=== PATIENT | male | born 1965 | race Caucasian/White ===

== ENCOUNTER → 2023-03-20 | Outpatient (CLI) | payer OTHER ==
--- NOTE | 2023-03-20 15:09 | XR ---
EXAMINATION TYPE: XR hand complete LT DATE OF EXAM: 03/20/2023 COMPARISON: None HISTORY: Swelling left hand distal and third metacarpal x2 weeks TECHNIQUE: 3 view left hip FINDINGS: Soft tissue swelling is over the distal metacarpal region. No acute fracture or dislocation is evident. Joint spaces are preserved. Follow up exams can be performed as clinically indicated. IMPRESSION: 1. No acute osseous abnormality. 2. Soft tissue swelling dorsum hand
== END | disposition home or self-care (01) ==
LOC: RADXRMAIN 13:22
PROVIDERS: ATTEND Family Medicine
DX: M79.89 Other specified soft tissue disorders (principal); R60.0 Localized edema

== ENCOUNTER → 2023-03-20 | Outpatient (CLI) | payer OTHER ==
--- NOTE | 2023-03-20 15:09 | US ---
EXAMINATION TYPE: US venous doppler duplex UE LT DATE OF EXAM: 03/20/2023 COMPARISON: NONE CLINICAL INDICATION: Male, 57 years old with history of R60.0 LOCALIZED EDEMA; lt wrist edema SIDE PERFORMED: Left Left Arm: Negative for DVT IMPRESSION: 1. Left upper extremity negative for deep venous thrombosis.
== END | disposition home or self-care (01) ==
LOC: MERGE 13:29 → RADUSWWP 13:29
PROVIDERS: ATTEND Family Medicine
DX: R60.0 Localized edema (principal)

== ENCOUNTER 2023-04-05 15:34 | Emergency (ER) | payer OTHER ==
[2023-04-05 15:50] VITALS: TEMP 98.1
--- NOTE | 2023-04-05 16:10 | ED ---
Chest Pain HPI - General Chief Complaint: Chest Pain Stated Complaint: Abn EKG, Chest Pain/sent by pcp Time Seen by Provider: 04/05/23 15:48 Source: patient Mode of arrival: ambulatory Limitations: no limitations - History of Present Illness Initial Comments: is 57-year-old man here to have evaluation for chest pain. Patient states that he was having some pains last night and this morning when he got up. He states that he went to work but then he had a brief nose bleed so he felt he should be evaluated. He went to his primary physician's office where they checked an EKG and sent him here to have further evaluation. The patient states she is just having some mild tightness to the left of the sternum. He states that he felt like his heart was pounding forcefully this morning when he woke up. He denies associated dyspnea, diaphoresis, nausea or vomiting. The patient is former smoker but quit 10 years ago. No family history. MD Complaint: chest pain Onset/Timin -: days(s) Onset: during rest Pain Location: left chest Pain Radiation: none Severity: mild Quality: tightness Consistency: constant Improves With: nothing Worsens With: nothing Treatments Prior to Arrival: none - Related Data On Oral Contraceptives: No Home Medications Medication Instructions Recorded Confirmed EPINEPHrine (Auto Inject) [Epipen] 0.3 mg IM ONCE PRN 04/05/23 04/05/23 Ibuprofen [Motrin] 600 mg PO TID-W/MEALS 04/05/23 04/05/23 Rosuvastatin [Crestor] 20 mg PO DAILY 04/05/23 04/05/23 predniSONE See Taper PO DIRECTED 04/05/23 04/05/23 Allergies Allergy/AdvReac Type Severity Reaction Status Date / Time bee venom protein (honey bee) Allergy Anaphylaxis Verified 04/05/23 16:59 Review of Systems ROS Statement: Those systems with pertinent positive or pertinent negative responses have been documented in the HPI. ROS Other: All systems not noted in ROS Statement are negative. Constitutional: Denies: fever, chills Respiratory: Denies: cough, dyspnea Cardiovascular: Reports: chest pain, palpitations. Denies: edema, syncope Gastrointestinal: Denies: abdominal pain, nausea, vomiting, diarrhea Genitourinary: Denies: dysuria, hematuria Musculoskeletal: Denies: back pain Skin: Denies: rash Neurological: Denies: headache, weakness EKG Findings - EKG Results: EKG: interpreted by ERMD, sinus rhythm (Rate 73 bpm) - Blocks, [place], Hypertrophy, ST Abn: AV and intraventricular conduction: right bundle branch block (fixed/intermittent, complete/incomplete) QRS axis and voltage: left axis deviation (-30 to -90) Chamber hypertrophy or enlargement: only voltage criteria for left ventricular hypertrophy Past Medical History Past Medical History: Rheumatoid Arthritis (RA) History of Any Multi-Drug Resistant Organisms: None Reported Past Surgical History: No Surgical Hx Reported Smoking Status: Former smoker Past Alcohol Use History: None Reported Past Drug Use History: None Reported General Exam Limitations: no limitations General appearance: alert, in no apparent distress Head exam: Present: atraumatic, normocephalic Eye exam: Present: normal appearance. Absent: scleral icterus, conjunctival injection Neck exam: Present: normal inspection Respiratory exam: Present: normal lung sounds bilaterally. Absent: respiratory distress, wheezes, rales, rhonchi, stridor Cardiovascular Exam: Present: regular rate, normal rhythm, normal heart sounds. Absent: systolic murmur, diastolic murmur, rubs, gallop GI/Abdominal exam: Present: soft. Absent: distended, tenderness, guarding, rebound, rigid, mass Extremities exam: Present: normal inspection, normal capillary refill. Absent: pedal edema, calf tenderness Back exam: Present: normal inspection. Absent: CVA tenderness (R), CVA tenderness (L) Neurological exam: Present: alert Skin exam: Present: warm, dry, intact, normal color. Absent: rash Course Vital Signs 04/05/23 04/05/23 04/05/23 15:40 20:01 20:30 Temperature 98.1 F Pulse Rate 80 75 68 Respiratory 16 16 16 Rate Blood Pressure 167/87 128/91 131/87 O2 Sat by Pulse 95 97 97 Oximetry 04/05/23 04/05/23 21:30 22:00 Temperature Pulse Rate 74 77 Respiratory 13 18 Rate Blood Pressure 123/84 123/84 O2 Sat by Pulse 97 95 Oximetry Chest Pain MDM - MDM The patient had chest x-ray which I interpreted as negative for acute infiltrate, pneumothorax, congestive heart failure Was pt. sent in by a medical professional or institution (, PA, FINANCE MANAGER, urgent care, hospital, or prison...) When possible be specific @ -[No] Did you speak to anyone other than the patient for history (EMS, parent, family, police, friend...)? What history was obtained from this source @ -[No] Did you review nursing and triage notes (agree or disagree)? Why? @ -[I reviewed and agree with nursing and triage notes] Were old charts reviewed (outside hosp., previous admission, EMS record, old EKG, old radiological studies, urgent care reports/EKG's, prison records)? Report findings @ -[No old charts were reviewed] Differential Diagnosis (chest pain, altered mental status, abdominal pain women, abdominal pain men, vaginal bleeding, weakness, fever, dyspnea, syncope, headache, dizziness, GI bleed, back pain, seizure, CVA, palpatations, mental health, musculoskeletal)? @ -[Differential Chest Pain: Stable Angina, Unstable Angina, STEMI, NSTEMI Aortic Dissection, Pneumothorax, Musculoskeletal, Esophageal Spasm GERD, Cholecystitis, Pancreatitis, Zoster, this is not meant to be an all-inclusive list. EKG interpreted by me (3pts min.). @ -[I interpreted As above] X-rays interpreted by me (1pt min.). @ -I interpreted as above CT interpreted by me (1pt min.). @ -[None done] U/S interpreted by me (1pt. min.). @ -[None done] What testing was considered but not performed or refused? (CT, X-rays, U/S, labs)? Why? @ -[None] What meds were considered but not given or refused? Why? @ -[None] Did you discuss the management of the patient with other professionals (professionals i.e. , PA, FINANCE MANAGER, lab, RT, psych nurse, manager social services, clinical trial specialist, teacher, school services officer, immigration case worker)? Give summary @ -[No] Was smoking cessation discussed for >3mins.? @ -[No] Was critical care preformed (if so, how long)? @ -[No] Were there social determinants of health that impacted care today? How? (Homelessness, low income, unemployed, alcoholism, drug addiction, transportation, low edu. Level, literacy, decrease access to med. care, correction, rehab)? @ -[No] Was there de-escalation of care discussed even if they declined (Discuss DNR or withdrawal of care, Hospice)? DNR status @ -[No] What co-morbidities impacted this encounter? (DM, HTN, Smoking, COPD, CAD, Cancer, CVA, ARF, Chemo, Hep., AIDS, mental health diagnosis, sleep apnea, morbid obesity)? @ -[None] Was patient admitted / discharged? Hospital course, mention meds given and route, prescriptions, significant lab abnormalities, going to OR and other pertinent info. @ -[The patient is a 57-year-old man here to have evaluation for chest pain. The patient's initial workup unremarkable, I did recommend admission but the patient at this point is feeling better and would like to go home. He did agree to stay to have second troponin which was also negative. He understands recommendation to have follow-up with cardiology in the near term. We discussed return parameters Undiagnosed new problem with uncertain prognosis? @ -[No] Drug Therapy requiring intensive monitoring for toxicity (Heparin, Nitro, Insulin, Cardizem)? @ -[No] Were any procedures done? @ -[No] Diagnosis/symptom? @ -[Acute chest pain Acute, or Chronic, or Acute on Chronic? @ -[default] Uncomplicated (without systemic symptoms) or Complicated (systemic symptoms)? @ -[Uncomplicated Side effects of treatment? @ -[No] Exacerbation, Progression, or Severe Exacerbation? @ -[No] Poses a threat to life or bodily function? How? (Chest pain, [place], DC, pneumonia, PE, COPD, DKA, ARF, appy, cholecystitis, CVA, Diverticulitis, Homicidal, Suicidal, threat to staff... and all critical care pts) @ -[Yes, there is possibility of underlying cardiac etiology which may progress to DC slashed sudden- Disposition Clinical Impression: Chest pain Disposition: HOME SELF-CARE Condition: Good Instructions (If sedation given, give patient instructions): Chest Pain (ED) Is patient prescribed a controlled substance at d/c from ED?: No Referrals: Eliot Orta MD [Primary Care Provider] - 1-2 days Bashir Luong MD [STAFF PHYSICIAN] - 1-2 days
[2023-04-05 17:33] LABS: Basophils % (A) 0 %; Eosinophils # (A) 0.1 k/uL (0-0.7); Eosinophils % (A) 1 %; HCT 43.2 % (39.0-53.0); HGB 14.5 gm/dL (13.0-17.5); Lymphocytes % (A) 22 %; MCHC 33.5 g/dL (31.0-37.0); MCV 92.5 fL (80.0-100.0); Mean Platelet Volume 8.6; Monocytes # (A) 0.9 k/uL (0-1.0); Monocytes % (A) 6 %; Neutrophils # (A) 9.3 k/uL (1.3-7.7); Neutrophils % (A) 69 %; Platelet Count 283 k/uL (150-450); RBC 4.67 m/uL (4.30-5.90); RDW 12.6 % (11.5-15.5); WBC 13.5 k/uL (3.8-10.6)
[2023-04-05 17:47] LABS: ALT 27 U/L (4-49); AST 18 U/L (17-59); African American GFR (CKD) >90 (>60 ml/min/1.73 sqM); Alkaline Phosphatase 100 U/L (38-126); Anion Gap 10 mmol/L; Blood Urea Nitrogen 20 mg/dL (9-20); Calcium 9.4 mg/dL (8.4-10.2); Carbon Dioxide 24 mmol/L (22-30); Chloride 104 mmol/L (98-107); Glucose 107 mg/dL (74-99); Magnesium 2.5 mg/dL (1.6-2.3); Non-African American GFR(CKD) >90 (>60 ml/min/1.73 sqM); Potassium 4.3 mmol/L (3.5-5.1); Sodium 138 mmol/L (137-145); Total Bilirubin 0.4 mg/dL (0.2-1.3); Total Protein 7.3 g/dL (6.3-8.2)
[2023-04-05 18:34] LABS: Partial Thromboplastin Time 24.2 sec (22.0-30.0)
--- NOTE | 2023-04-05 18:35 | XR ---
EXAMINATION TYPE: XR chest 2V DATE OF EXAM: 04/05/2023 COMPARISON: None INDICATION: Chest pain TECHNIQUE: Frontal and lateral views of the chest are obtained. FINDINGS: The heart size is normal. The pulmonary vasculature is normal. Some mild infiltrate is within the lingula. There is partial silhouetting the left heart border at th e apex and the left diaphragm.. IMPRESSION: 1. Mild infiltrate within the lingula. Correlate for atelectasis or pneumonia. Follow-up can be perfo rmed.
[2023-04-05 21:46] VITALS: BP 123/84
[2023-04-05 22:35] VITALS: PULSE 77; RESP 18
== END 2023-04-05 22:18 | disposition home or self-care (01) ==
LOC: EC 15:34
DX: I45.10 Unspecified right bundle-branch block (principal); Z87.891 Personal history of nicotine dependence; Z91.030 Bee allergy status
CPT/HCPCS: 36415; 71046; 80053; 83735; 84484; 85025; 85610; 85730; 93005; 99285

== ENCOUNTER → 2023-05-09 | Outpatient (CLI) | payer OTHER ==
--- NOTE | 2023-05-09 11:42 | CA ---
Transthoracic Echo Report Name: Christopher Gonzales Age: 57 Gender: M : 1965 Exam Date: 05/09/2023 10:47 Exam Location: [place] [facility] Ht (in): 71 Wt (lb): 210 Ordering Physician: Eliot Orta MD Attending/Referring Phys: Kasey Salas [facility] Clean Room Operator Pilar Rizo RDCS Procedure CPT: Indications: R00.2 palpitations Cardiac Hx: Technical Quality: Fair Contrast 1: Total Dose (mL): Contrast 2: Total Dose (mL): MEASUREMENTS (Male / Female) Normal Values 2D ECHO LV Diastolic Diameter PLAX 3.5 cm 4.2 - 5.9 / 3.9 - 5.3 cm LV Systolic Diameter PLAX 2.7 cm IVS Diastolic Thickness 1.5 cm 0.6 - 1.0 / 0.6 - 0.9 cm LVPW Diastolic Thickness 1.4 cm 0.6 - 1.0 / 0.6 - 0.9 cm LV Relative Wall Thickness 0.8 RV Internal Dim ED PLAX 3.3 cm LA Volume 33.2 cm??? 18 - 58 / 22 - 52 cm??? LA Volume Index 15.0 cm???/m??? 16 - 28 cm???/m??? M-MODE Aortic Root Diameter MM 3.1 cm LA Systolic Diameter MM 3.8 cm LA Ao Ratio MM 1.3 AV Cusp Separation MM 2.2 cm DOPPLER AV Peak Velocity 142.5 cm/s AV Peak Gradient 8.1 mmHg AV Mean Velocity 102.4 cm/s AV Mean Gradient 4.8 mmHg AV Velocity Time Integral 28.1 cm LVOT Peak Velocity 104.3 cm/s LVOT Peak Gradient 4.3 mmHg LVOT Velocity Time Integral 20.1 cm MV Area PHT 3.5 cm??? Mitral E Point Velocity 64.2 cm/s Mitral A Point Velocity 95.4 cm/s Mitral E to A Ratio 0.7 MV Deceleration Time 216.6 ms MV E' Velocity 8.4 cm/s Mitral E to MV E' Ratio 7.6 TR Peak Velocity 208.7 cm/s TR Peak Gradient 17.4 mmHg Right Ventricular Systolic Press 22.4 mmHg FINDINGS Left Ventricle Moderately increased left ventricular wall thickness. Left ventricular cavity size normal. Normal left ventricular systolic function with no obvious regional wall motion abnormalities. Left ventricular ejection fraction is estimated at 55-60 %. Right Ventricle Normal right ventricular size and function. Right ventricular systolic pressure within normal limits. Right Atrium Normal right atrial size. Left Atrium Normal left atrial size. Interatrial septal aneurysm. Mitral Valve Structurally normal mitral valve. No mitral stenosis, regurgitation or prolapse. Aortic Valve Trileaflet aortic valve. No aortic valve stenosis or regurgitation. Tricuspid Valve Structurally normal tricuspid valve. Mild tricuspid regurgitation. Pulmonic Valve Structurally normal pulmonic valve. Pericardium No pericardial effusion. Aorta Normal size aortic root and proximal ascending aorta. CONCLUSIONS Normal LV size and systolic function. Mild mitral and tricuspid regurgitation. No significant pulmonary hypertension no pericardial effusion Previewed by: Dr. Hammad Kumar MD (Electronically Signed) Final Date: 09 May 2023 11:41
--- NOTE | 2023-05-09 11:45 | CA ---
Stress Echo Report Christopher Gonzales Age: 57 Gender: M : 1965 Exam Date: 05/09/2023 10:28 Exam Location: [place] Stress Ht (in): 71 Wt (lb): 210 Ordering Physician: Eliot Orta MD Referring Physician: Kasey Salas Lap Machine Operator: Tex Simeon Technologist Procedure CPT: Indication: R00.2 palpitations ICD-9 Codes: Rhythm: Patient History: Cardiac Medications: Medications in past 24 hours: Contrast: N/A Stress Results Protocol: Estiven Total dose(mL): Exercise Duration (min:sec): 10:[address] Depression (mm): Angina Score: Berg Score: METS: 11.7 Resting HR: 97 Resting BP: 110 / 74 Peak HR: 163 Peak BP: 170 / 72 Max Predicted HR: 163 100 % Max Predicted HR Target HR: 139 Double Product: 10327 Stress Summary: BP Response: Reason for Termination: Reached target heart rate or work-load Cardiac Symptoms: NO SYMPTOMS ECG Analysis Resting ECG: Stress ECG: Arrhythmia: Echo Analysis Resting Echo: Peak Echo Analysis: MEASUREMENTS (Male/Female) Normal Values CONCLUSIONS Baseline EKG revealed a normal sinus rhythm with a right bundle branch block pattern and repolarization abnormality. Patient walked on a standard Estiven protocol for 10 minutes 36 seconds and achieved a maximal heart rate of 160 bpm. He did not have any anginal symptoms there was no arrhythmia. EKG remained inconclusive. This is a inconclusive stress test by EKG criteria because of resting EKG changes. Excellent excise capacity was noted no angina no arrhythmia was noted. Baseline echo images revealed normal wall motion wall thickening of all segments . At peak exercise there was good augmentation of the front wall motion wall thickening of all segments suggesting that there is no evidence of stress-induced ischemia on this study. Final impression #1 by EKG criteria is inconclusive stress test with excellent exercise capacity. There were resting EKG changes to begin with. Patient did not have any angina there was no arrhythmia. #2 normal stress echocardiogram without evidence of ischemia Dr. Hammad Kumar MD (Electronically Signed) Final Date: 09 May 2023 11:45
== END | disposition home or self-care (01) ==
LOC: RADECHMAIN 09:38
PROVIDERS: ATTEND Family Medicine
DX: I08.1 Rheumatic disorders of both mitral and tricuspid valves (principal); R00.2 Palpitations; I45.10 Unspecified right bundle-branch block
CPT/HCPCS: 93306; 93351

== ENCOUNTER → 2023-05-13 | Outpatient (CLI) | payer OTHER | END | disposition home or self-care (01) | LOC: RADNMMAIN 13:17 | PROVIDERS: ATTEND Family Medicine | DX: Z53.9 Procedure and treatment not carried out, unspecified reason (principal) ==

== ENCOUNTER → 2023-07-29 | Outpatient (CLI) | payer OTHER ==
[2023-07-29 18:55] LABS: ALT 33 U/L (10-49); AST 23 U/L (14-35); BUN/Creat Ratio 25.44 Ratio (12.00-20.00); Blood Urea Nitrogen 22.9 mg/dL (9.0-27.0); C Reactive Protein <0.30 mg/dL (0.00-0.80); Carbon Dioxide 25.8 mmol/L (21.6-31.8); Chloride 104 mmol/L (96-109); Glucose 99 mg/dL (70-110); Potassium 5.2 mmol/L (3.5-5.5); Sodium 140 mmol/L (135-145)
[2023-07-29 20:22] LABS: Basophils # (A) 0.05 X 10*3/uL (0.00-0.10); Basophils % (A) 0.7 %; Eosinophils # (A) 0.22 X 10*3/uL (0.04-0.35); Eosinophils % (A) 3.2 %; HCT 49.1 % (39.6-50.0); HGB 15.9 g/dL (13.0-17.0); Lymphocytes # (A) 1.82 X 10*3/uL (0.90-5.00); Lymphocytes % (A) 26.1 %; MCH 31.1 pg (27.0-32.0); MCHC 32.4 g/dL (32.0-37.0); MCV 95.9 FL (80.0-97.0); Mean Platelet Volume 11.4 FL (9.5-12.2); Monocytes # (A) 0.71 X 10*3/uL (0.20-1.00); Monocytes % (A) 10.2 %; NRBC Per 100 WBC 0 X 10*3/uL (0.00-0.01); Neutrophils # (A) 4.15 X 10*3/uL (1.80-7.70); Neutrophils % (A) 59.4 %; Platelet Count 319 X 10*3/uL (140-440); RBC 5.12 X 10*6/uL (4.40-5.60); RDW 12.8 % (11.5-14.5); WBC 6.98 X 10*3/uL (4.50-10.00)
[2023-07-29 20:37] LABS: Erythrocyte Sedimentation Rate 9 mm/Hr (0-20)
== END | disposition home or self-care (01) ==
LOC: LABWHC1 07:46
PROVIDERS: ATTEND Internal Medicine Rheumatology
DX: M06.89 Other specified rheumatoid arthritis, multiple sites (principal)
CPT/HCPCS: 36415; 80048; 84450; 84460; 85025; 85652; 86140

== ENCOUNTER → 2024-04-11 | Outpatient (CLI) | payer OTHER ==
[2024-04-12 07:22] LABS: Basophils # (A) 0.08 X 10*3/uL (0.00-0.10); Basophils % (A) 1.3 %; Eosinophils # (A) 0.22 X 10*3/uL (0.04-0.35); Eosinophils % (A) 3.5 %; HCT 48.3 % (39.6-50.0); HGB 15.5 g/dL (13.0-17.0); Lymphocytes # (A) 1.69 X 10*3/uL (0.90-5.00); Lymphocytes % (A) 27.1 %; MCH 31.9 pg (27.0-32.0); MCHC 32.1 g/dL (32.0-37.0); MCV 99.4 FL (80.0-97.0); Mean Platelet Volume 11.8 FL (9.5-12.2); Monocytes # (A) 0.68 X 10*3/uL (0.20-1.00); Monocytes % (A) 10.9 %; NRBC Per 100 WBC 0 X 10*3/uL (0.00-0.01); Neutrophils # (A) 3.49 X 10*3/uL (1.80-7.70); Neutrophils % (A) 56.1 %; Platelet Count 269 X 10*3/uL (140-440); RBC 4.86 X 10*6/uL (4.40-5.60); RDW 13.2 % (11.5-14.5); WBC 6.23 X 10*3/uL (4.50-10.00)
[2024-04-12 09:10] LABS: Erythrocyte Sedimentation Rate 11 mm/Hr (0-20)
[2024-04-12 11:00] LABS: ALT 32 U/L (10-49); AST 23 U/L (14-35); Albumin 4.5 g/dL (3.8-4.9); Alkaline Phosphatase 86 U/L (41-126); Blood Urea Nitrogen 25.6 mg/dL (9.0-27.0); C Reactive Protein <0.30 mg/dL (0.00-0.80); Calcium 9.5 mg/dL (8.7-10.3); Carbon Dioxide 24.1 mmol/L (21.6-31.8); Chloride 109 mmol/L (96-109); Chol/HDL Ratio 2.93 Ratio; Glucose 102 mg/dL (70-110); LDL Cholesterol,Calculated 90.3 mg/dL (0.0-131.0); Sodium 143 mmol/L (135-145); Total Bilirubin 0.4 mg/dL (0.3-1.2); Total Protein 7.5 g/dL (6.2-8.2); VLDL Calculation 13.06 mg/dL (5.00-40.00)
== END | disposition home or self-care (01) ==
LOC: LABWHC1 09:09
PROVIDERS: ATTEND Internal Medicine Rheumatology
DX: M06.89 Other specified rheumatoid arthritis, multiple sites (principal); E78.5 Hyperlipidemia, unspecified; R79.9 Abnormal finding of blood chemistry, unspecified
CPT/HCPCS: 36415; 80053; 80061; 83036; 84443; 85025; 85652; 86140